=== PATIENT | female | born 1945 | race Caucasian/White ===

== ENCOUNTER 2017-01-15 07:41 | Day surgery (SDC) | payer MEDICARE, OTHER ==
[~2017-01-15 07:41] MED LIST: RINGERS SOLUTION,LACTATED 1,000 ML IV PRN
--- OUTSIDE RECORDS SUMMARY | 2017-01-15 07:44 | XMS REPORT | Continuity of Care Document ---
:1945 Author Organization [facility] ([facility]) [place] [address] Phone [phone] Care Team Providers Name Role Phone Unavailable Primary Care Provider Unavailable Source Comments This disclosure is being made pursuant to the Care Everywhere program, applicable federal and state laws, and may not contain all informaitonavailable regarding this patient.[facility] ([facility]) Active Allergies and Adverse Reactions Not on File Current Medications Not on file Active Problems Not on file Social History Tobacco Use Types Packs/Day Years Used Date Never Assessed Plan of Care Health Maintenance Due Date Last Done Comments HCV Screening 1945 Hepatitis B Vaccine (1 of 3 - Primary Series) 1945 Tdap Vaccine 1958 Lipid Disorder Screening 1965 Td Vaccine 1965 Mammogram 1987 Colonoscopy 10/27/1997 Zoster Vaccine 2007 Osteoporosis Screening (DXA Bone Density) 2012 Pneumococcal Vaccine (1 of 2 - PCV13) 2012 Influenza Vaccine: Seasonal (#1) 04/08/2016 Results from Last 3 Months Not on file
[2017-01-15] MEDS ORDERED: RINGERS SOLUTION,LACTATED 1,000 ML IV ONE (08:09)
[2017-01-15] MEDS ORDERED: RINGERS SOLUTION,LACTATED 1,000 ML IV PRN (09:32)
[2017-01-15 10:35] VITALS: BP 116/91
--- NOTE | 2017-01-15 16:02 | OR ---
Operative Report - Dictated Report Narrative: OPERATIVE REPORT DATE OF OPERATION: 01/15/2017 PREOPERATIVE DIAGNOSIS: No recent dedicated colon studies. Family history of colon cancer. POSTOPERATIVE DIAGNOSIS: 4 mm polyp at 20 cm (pathology pending) OPERATION: Colonoscopy with hot biopsy forceps polypectomy at 20 cm SURGEON: Mannie Ibanez MD ANESTHESIA: RANULFO Krueger CRNA INDICATIONS FOR PROCEDURE: The patient is a 71-year-old female referred by Dr. Dr. Quezada. Her father had colon cancer at age 77. The patient had a hyperplastic polyp removed at her last colonoscopy in 2006. She is currently asymptomatic FINDINGS: 4 mm area of polypoid change at 20 cm, otherwise normal colonoscopy to the cecum NARRATIVE OF PROCEDURE: The patient was identified in the holding area, and prior to the administration of anesthetic, a multidisciplinary timeout was observed. With the patient in the left lateral position and after the administration of intravenous sedation, the perineum was inspected. There was no evidence of pilonidal disease or skin breakdown. The external appearance of the anus was normal. Sphincter tone was good. The flexible fiberoptic colonoscope was inserted into the rectum which was insufflated with air. The rectal mucosa and submucosal vascular pattern appeared normal, the prep was seen to be complete. The scope was advanced through the sigmoid colon, where at 20 cm a 4 mm area of polypoid change was encountered. This was bypassed. The scope was advanced up the descending colon, and around the splenic flexure where the triangular haustral architecture of the transverse colon was seen. The scope was advanced across the transverse colon, around the hepatic flexure to the cecum, where the confluence of tenia and the ileocecal valve were identified. The mucosa at this level appeared normal. The scope was then slowly withdrawn in a circular fashion so that all aspects of colonic mucosa were inspected. The colon was normal in course and caliber. The haustral architecture appeared well preserved throughout with no evidence of external compression. The mucosa and submucosal vascular pattern appeared normal, specifically there was no gross evidence to suggest colitis or inflammatory bowel disease and no AV malformations were seen. No alla diverticulosis was demonstrated. The polyp at 20 cm was biopsied and then thoroughly destroyed with electrocautery. The site was seen to be complete and hemostatic. No additional polyps were encountered during the course of the exam. The scope was gradually withdrawn to the level of the rectum. As much insufflated air as possible was removed. The scope was withdrawn from the patient and the procedure terminated. The patient tolerated the anesthetic and procedure well without complication and was transferred back to the ambulatory surgery area awake and in stable condition. The patient remained stable throughout a period of postoperative observation. She denied abdominal discomfort, was able to tolerate by mouth intake, and was up without assistance. I shared the operative findings with the patient and she was given copies of the photographs which appear in the medical record. She was discharged home with instructions not to engage in hazardous activity today , but may resume normal activity tomorrow, and advance diet as tolerated. She is to continue those medications as listed in the history and physical exam. I made arrangements to contact her with the biopsy reports and will make additional recommendations for treatment and follow-up based upon those results. Reviewed and electronically signed
== END 2017-01-15 07:42 | disposition home or self-care (01) ==
LOC: AMB 07:41
PROVIDERS: ATTEND Surgery
PROC: 0DBE8ZX Excision of Large Intestine, Via Natural or Artificial Opening Endoscopic, Diagnostic (ICD-10-PCS; principal; 2017-01-15 08:55)
DX: Z12.11 Encounter for screening for malignant neoplasm of colon (principal); K63.5 Polyp of colon; I10 Essential (primary) hypertension; M10.9 Gout, unspecified; L40.9 Psoriasis, unspecified; Z87.891 Personal history of nicotine dependence; Z80.0 Family history of malignant neoplasm of digestive organs; Z68.38 Body mass index [BMI] 38.0-38.9, adult